=== PATIENT | female | born 2005 | race Caucasian/White ===

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

== ENCOUNTER 2024-02-01 15:56 | Emergency (ER) | payer MEDICAID, OTHER ==
[~2024-02-01] VITALS: Ht 160 cm; Wt 75.3 kg
[2024-02-01 16:11] VITALS: BP 100/70; TEMP 98.8; O2SAT 96
[2024-02-01] MEDS ORDERED: SERT25TA21 (16:31)
[2024-02-01] MEDS ORDERED: FERR325T3 PO (16:31)
[2024-02-01] MEDS ORDERED: INCA0.35 (16:31)
[2024-02-01] MEDS ORDERED: AMOX875T2 (16:31)
== END 2024-02-01 18:54 | disposition left against medical advice (07) ==
LOC: M ED 15:56
DX: Z53.21 Procedure and treatment not carried out due to patient leaving prior to being seen by health care provider (principal)

== ENCOUNTER 2024-03-21 20:08 | Emergency (ER) | payer OTHER ==
[~2024-03-21] VITALS: Ht 160 cm; Wt 72.2 kg
[~2024-03-21 20:08] MED LIST changes: +AMOX875T2; +FERR325T3 PO; +INCA0.35; +SERT25TA21
[2024-03-21 21:58] VITALS: BP 116/68; TEMP 98.1; O2SAT 99
== END 2024-03-21 22:36 | disposition left against medical advice (07) ==
LOC: M ED 20:08
DX: Z53.21 Procedure and treatment not carried out due to patient leaving prior to being seen by health care provider (principal)

== ENCOUNTER → 2024-06-09 | Outpatient (REF) | payer OTHER | LOC: M LAB REF 12:17 | PROVIDERS: ATTEND Nurse Practitioner Family | DX: R10.30 Lower abdominal pain, unspecified (principal) ==

== ENCOUNTER → 2024-10-06 | Outpatient (CLI) | payer OTHER | LOC: M PLALAB 14:24 | PROVIDERS: ATTEND Advanced Practice Midwife | DX: N91.2 Amenorrhea, unspecified (principal) ==

== ENCOUNTER → 2024-10-09 | Outpatient (CLI) | payer OTHER | LOC: M RAD 12:34 | PROVIDERS: ATTEND Registered Nurse | DX: M25.531 Pain in right wrist (principal) ==